=== PATIENT | male | born 1995 | race Caucasian/White ===

== ENCOUNTER 2025-10-01 21:03 | Emergency (ER) | payer BC, SELFPAY ==
--- OUTSIDE RECORDS SUMMARY | 2025-09-13 11:00 | XMS_ITS | Encounter Summary ---
Author Organization Healthcare Address [address] [place] [address] Care Team Providers Care Laboratory Technical Specialist Name Role Phone Yolanda Whitmore MD Primary Care Provider [phone] Isidro Beasley MD Unavailable [phone] Reason for Visit * Reason Comments Depression Encounter Details Date Type Department Care Team (Latest Contact Info) Description 09/13/2025 11:00 AM EDT Office Visit [facility] [address] [place] [address] Yolanda Whitmore MD [address] [place] [address] Overweight (Primary Dx); Hemorrhoids, unspecified hemorrhoid type; Healthcare maintenance; Hyperlipidemia, unspecified hyperlipidemia type Social History Tobacco Use Types Packs/Day Years Used Date Smoking Tobacco: Never Passive Smoke Exposure: Never Smokeless Tobacco: Never Alcohol Use Standard Drinks/Week Comments Yes 6 (1 standard drink = 0.6 oz pure alcohol) I do not abstain from alcohol, but don't drink too often PHQ-2 Answer Date Recorded Patient Health Questionnaire-2 Score 3 06/08/2025 PHQ-9 Answer Date Recorded Patient Health Questionnaire-9 Score 9 06/08/2025 Humiliation, Afraid, Rape, and Kick questionnair e Answer Date Recorded Within the last year, have y ou been afraid of your partner or ex-partner? No 06/01/2025 Within the last year, have y ou been humiliated or emotionally abused in other ways by your partner or ex-partner? No Within the last year, have y ou been kicked, hit, slapped, or otherwise physically hurt by your partner or ex-partner? No 06/01/2025 Within the last year, have y ou been raped or forced to have any kind of sexual activity by your partner or ex-partner? No 06/01/2025 AUDIT-C Answer Date Recorded Q1: How often do you have a drink containing alc ohol? 2-4 times a month 06/08/2025 Q2: How many drinks containi ng alcohol do you have on a typical day when you are drinking? 3 or 4 06/08/2025 Q3: How often do you have si x or more drinks on one occasion? Less than monthly 06/08/2025 Hunger Vital Sign Answer Date Recorded Within the past 12 months, y ou worried that your food would run out before you got the money to buy more. Never true 06/01/20 25 Within the past 12 months, t he food you bought just didn't last and you didn't have money to get more. Never true 06/01/2025 PRAPARE - Transportation Answer Date Re corded In the past 12 months, has l ack of transportation kept you from medical appointments or from getting medications? No 01/2025 In the past 12 months, has l ack of transportation kept you from meetings, work, or from getting things needed for daily living? No 06/01/2025 Housing Stability Vital Sign Answer Cooper e Recorded In the last 12 months, was t here a time when you were not able to pay the mortgage or rent on time? No 06/01/2025 In the past 12 months, how m any times have you moved where you were living? 0 06/01/2025 At any time in the past 12 m [facility], were you homeless or living in a longterm (including now)? No 06/01/2025 Utilities Answer Date Recorded In the past 12 months has th e electric, gas, oil, or water company threatened to shut off services in your home? No 06/01/2025 Sex and Gender Information Value Date Recorded Sex Assigned at Not on file Legal Sex Male 8:13 PM EDT Gender Identity Not on file Sexual Orientation Not on file documented as of this encounter Last Filed Vital Signs Vital Sign Reading Time Taken Comments Blood Pressure 119/78 09/13/2025 10:48 AM EDT Pulse 71 09/13/2025 10:48 AM EDT Temperature 36.7 C (98 F) 09/13/2025 10:48 AM EDT Respiratory Rate 17 09/13/2025 10:48 AM EDT Oxygen Saturation 98% 09/13/2025 10:48 AM EDT Inhaled Oxygen Concentration - - Weight 96.2 kg (212 lb 1.3 oz) 09/13/2025 10:48 AM EDT Height 180.3 cm (5' 11 ) 09/13/2025 10:48 AM EDT Body Mass Index 29.58 09/13/2025 10:48 AM EDT documented in this encounter Functional Status * Calculated C-SSRS Risk Score (Lifetime/Recent) Answer Date of Assessment Author No Risk Indicated 09/13/2025 10:47 AM EDT Elma Sahu * Question Answer Date of Assessment Author 1. Wish to be (Past 1 Month) No 025 10:47 AM EDT Elma Sahu 2. Non-Specific Active Suici agnieszka Thoughts (Past 1 Month) No 09/13/2025 10:47 AM EDT Susanna Sahu 6. Suicidal Behavior (Lifetime) No 10:47 AM EDT Elma Sahu documented as of this encounter Miscellaneous Notes * Patient Instructions - Yolanda Whitmore MD - 09/13/2025 11:00 AM EDT - Call GI at [phone] to schedule appointment. - Call Psychiatry at [phone] option 1 at your earliest convenience to schedule an appointment. - Please obtain a tetanus booster and hepatitis B from your preferred pharmacy and the influenza through your stepmother - We will see you next summer for your annual physical * Progress Notes - Isidro Beasley MD - 09/13/2025 11:00 AM EDT Established Patient Visit Verbal consent was obtained to use ambient listening technology to assist in the documentation of the encounter: yes Subjective HPI Mr. Conrad is here today for a follow up visit for anxiety, GERD, depression, class 1 obesity, and chronic rectal pressure. History of Present Illness He sustained a foot injury while bouldering at a climbing gym, where he slipped and fell, landing on his toes. He heard a popping sound but did not seek immediate medical attention. The following day, he visited an urgent care center, which lacked orthopedic services due to it being a Friday. Cons equently, he was referred to the ER, where he was diagnosed with fractures in the second, third, and fourth tarsals. He was fitted with a boot and advised to follow up in 2 weeks. After this period, he continued to wear the boot for an additional 1.5 weeks before transitioning back to regular footwear. He now wears his usual shoes and experiences occasional tenderness and stiffness, which he attributes to scar tissue. Despite these symptoms, he is able to run and jump. He has not returned to the climbing gym since the incident and plans to avoid it until after the busy season at work. 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 He is concerned about maintaining his activity level, as his current job requires him to be physically active, walking approximately 11,300 steps on Friday and 12,400 steps on Friday. He has not yet consulted with a flavor extractor or psychiatrist. He received a call from the psychiatry department but was unable to respond due to his foot injury. His mental health has improved since being offered a new job, although he still experiences intermittent depression and increased anxiety. He continues to experience rectal pressure, which he believes may be related to gas or an enlarged colon. He maintains a healthy diet, primarily sourcing his food from farmers' markets and fresh markets. He lives alone and prepares most of his meals at home, avoiding processed and fast foods. He reports no abdominal pain or changes in bowel habits. He continues to take MiraLAX and fiber powder for hemorrhoids, typically in the evening. He reports no chest pain, difficulty breathing, or leg swelling. Review of Systems A ROS was performed and negative other than what was stated in the HPI. Current Medications[1] Objective Visit Vitals BP 119/78 (BP Location: Left arm, Patient Position: Sitting, BP Cuff Size: Adult long) Pulse 71 Temp 36.7 ??C (98 ??F) (Oral) Resp 17 Ht 1.803 m (5' 11 ) Wt 96.2 kg (212 lb 1.3 oz) SpO2 98% BMI 29.58 kg/m?? Smoking Status Never BSA 2.19 m?? Physical Exam Vitals reviewed. Constitutional: General: He is not in acute distress. Appearance: Normal appearance. He is not ill-appearing. HENT: Head: Normocephalic and atraumatic. Nose: Nose normal. Cardiovascular: Rate and Rhythm: Normal rate and regular rhythm. Heart sounds: No murmur heard. No friction rub. No gallop. Pulmonary: Effort: Pulmonary effort is normal. No respiratory distress. Breath sounds: Normal breath sounds. No stridor. No wheezing or rhonchi. Chest: Chest wall: No tenderness. Abdominal: General: There is no distension. Palpations: Abdomen is soft. Tenderness: There is no abdominal tenderness. There is no guarding. Musculoskeletal: Right lower leg: No edema. Left lower leg: No edema. Neurological: Mental Status: He is alert and oriented to person, place, and time. Psychiatric: Mood and Affect: Mood normal. Behavior: Behavior normal. Assessment/Plan Mr. Conrad is an 30 y.o. male with anxiety, GERD, depression, class 1 obesity, and chronic rectal pressure who presents today for follow-up with a recent metatarsal neck fracture (recovering well overall). Pascual is overall doing well and has been focusing on diet and lifestyle interventions since our last visit. Minimally displaced 2nd to 4th metatarsal neck fractures - He sustained a foot injury while bouldering at a climbing gym, where he slipped and fell, landingon his toes. He heard a popping sound but did not seek immediate medical attention. The following day, he visited an urgent care center, which lacked orthopedic services due to it being a Friday. Co nsequently, he was referred to the ER, where he was diagnosed with fractures in the second, third, and fourth tarsals. - Following with ortho (07/2025) - Back to ambulation without difficulty or pain Plan: - Continue physical activity as tolerated Depression and anxiety with h/o SI and SA - Has PHQ-9 score of 5. Pascual seemed to have good insight today with protective factors including his family, close friend group, and cat Luz Elena. He has no guns in the home. - Previous visit PHQ-9 was a 9 - He reports that being offered a new job at a [employer] has improved his mental health - He has not been able to schedule an appointment with psychiatry or therapy due to being distracted by his foot injury. Plan: - Provided contacts to schedule psychiatry and for therapy. H/o GERD - He reports increased belching without burning, vomiting, or dysphagia. Plan: - Will monitor with diet modifications. - Low threshold for PPI or H2 course. Hemorrhoids - Continue daily miralax and fiber supplementation Chronic rectal pressure - Pascual noted h/o hemorrhoids and enlarged colon . No records available for review. No alarm features, and we previously deferred exam on account of more pressing medical concerns. - Still present but feels that it maybe related to gas, so deferred evaluation. - He has not been able to schedule an appointment with GI due to being distracted by his foot injury. Plan: - Provided contact to schedule with GI. Request prior C-scope records in the interim. - Would focus on bowel regimen given constipation may be a contributor. HLD - LDL: 139 - He reports focusing on eating local produce with minimal red meat - He reports not eating much processed or fast food - Continue regular aerobic exercise through walking and rock climbing Overweight - Associated HLD with normal A1c and LFTs 05/2025. - Continue regular aerobic exercise through walking and rock climbing Healthcare Maintenance Metabolic BP: At goal. Lipids:RESUFAST(CHOL:3)@ Lab Results Component Value Date HDL 61 06/08/2025 Lab Results Component Value Date LDLCALC 139 (H) 06/08/2025 Lab Results Component Value Date TRIG 48 06/08/2025 f1 Lab Results Component Value Date CRATIO 3 06/08/2025 A1c : Lab Results Component Value Date HGBA1C 5.1 06/08/2025 CMP: Lab Results Component Value Date GLUCOSE 91 06/08/2025 BUN 16 06/08/2025 CREATININE 0.83 06/08/2025 BCR 19 06/08/2025 NA 141 06/08/2025 K 4.6 06/08/2025 CL 107 06/08/2025 CO2 24 06/08/2025 ALBUMIN 4.6 06/08/2025 ALKPHOS 70 06/08/2025 BILITOT 0.3 06/08/2025 Screening (Male): Colon Ca: CRC in non-FDR. Likely repeat at age 45 and can work to get records of prior screening inthe interim. Lung ca: screening is not recommended AAA screening: is not Warranted: (patient between 65-75 years old and has history of smoking) PSA: Discuss at age 50 Lifetime 1x HIV screen: Lab Results Component Value Date HIV Non Reactive 06/08/2025 Lifetime 1x HepC screen: Lab Results Component Value Date HECG Negative 06/08/2025 Immunizations: Influenza: obtained in 2023- will get updated this year from step-mother (school nurse) TDAP: Recommend at local pharmacy Shingrix: Not currently indicated COVID: 2020 HPV: Not discussed Hepatitis B: Recommend at local pharmacy Pneumonia: Not currently indicated RSV: Not currently indicated RTC 05/2026 for annual or PRN Isidro Beasley MD Internal Medicine PGY-1 Diagnosis Plan 1. Overweight 2. Hemorrhoids, unspecified hemorrhoid type 3. Healthcare maintenance 4. Hyperlipidemia, unspecified hyperlipidemia type [1] No current outpatient medications on file. No current facility-administered medications for this visit. Cosigned by Yolanda Whitmore MD at 09/14/2025 3:07 PM EDT Associated attestation - Yolanda Whitmore MD - 09/14/2025 3:07 PM EDT I saw and evaluated the patient. I discussed the case with the resident/fellow and agree with the findings and plan as documented. documented in this encounter Plan of Treatment Upcoming Encounters Date Type Department Care Team (Late st Contact Info) Description 01/09/2026 9:40 AM EST Office Visit [facility] [address] [place] [address] Celia Giordano, SENIOR MEDICAL DIRECTOR [address] [place] [address] 06/08/2026 10:40 AM EDT Office Visit [facility] [address] [place] [address] Yloanda Whitmore MD [address] [facility] [address] [place] [address] documented as of this encounter Visit Diagnoses Diagnosis Overweight- Primary Hemorrhoids, unspecified hemorrhoid type Healthcare maintenance Hyperlipidemia, unspecified hyperlipidemia type documented in this encounter Additional Health Concerns Assessment Noted Time PHQ-9 Depression Total Score: 9 06/08/20 10:16 AM EDT A fall risk assessment has been complete d for the patient 07/01/2025 2:07 PM EDT A Body Mass Index follow-up plan has been documented for the patient 09/14/2025 3:07 PM EDT documented as of this encounter Care Teams Laboratory Technical Specialist Relationship Specialty Start Date End Date Yolanda Whitmore MD [address] [facility] [address] [place] [address] PCP - General Internal Medicine 06/08/25 Isidro Beasley MD [address] [place] [id number] PCP - Resident 06/08/25 05/31/28 documented as of this encounter
[2025-10-01 21:05] VITALS: BP 128/72; PULSE 62; RESP 18; TEMP 36.6; O2SAT 100; BMI 29.2
--- NOTE | 2025-10-01 21:32 | ED_ITS ---
Discharge Plan Disposition Patient Disposition: Home, Self-Care Prescriptions Prescriptions: New levofloxacin 750 mg tablet 750 mg PO DAILY 5 Days Qty: 5 0RF Referrals Follow up/Referrals: Manoj Alonso DO [Staff Physician, Orthopedics] - See instructions Provider,Referral, [Primary Care Provider, Medical] - See instructions Activity Restrictions/Add. Instructions Additional Instructions/Restrictions: At this time it was felt you are safe to be discharged home. If new or worsening symptoms please do not hesitate to return the emergency department. Please call and schedule an appointment with Dr. Alonso's office as soon as you are able for continued evaluation as this may take some time to heal and is at high risk for infection I have prescribed you antibiotics. Do not submerge your hand in water, it is okay to take your splint off and wash it gently if needed. Clinical Impressions Clinical Impression: Laceration of thumb Instructions Patient Instructions: DI for Laceration Repair Print Language Print Language: Kenyan Discharge ED Provider: Martin Landa General Adult HPI <Martin Landa MD - Last Filed: 10/01/25 22:44> General Chief complaint: Wound/Laceration Stated complaint: AO 10-01 left thumb cut Time Seen by Provider: 10/01/25 21:11 Mode of Arrival: Ambulatory Source of Information: Patient and Significant Other Description of Symptoms (Recalled from ER Triage Doc. by RN): patient was cutting chicken with a abimbola when it slipped and cut his left index finger. patient also stated he had 2 shots of bourbon and 1 shot of vodka tonight as well as smoked marajuana. History of Present Illness HPI narrative: Patient is a 30-year-old male right-handed who presents to the emergency department for evaluation of a traumatic injury to his left thumb. Patient inadvertently hit it with a meat Abimbola tetanus not up-to-date. No other traumatic injuries. Please note that above description of symptoms, in this electronic medical record under categorization of recalled from ER triage doctor by RN are reflective of an initial nursing assessment, however, is not reflective of my full history and physical exam that was personally taken and clarified. Consequentially, this preceding description of symptoms, which may include the patient's categorized chief complaint in the EMR, do not reflect my personal clinical impression, and the ultimate description of history of present illness and patient stated complaints should be deferred to this section of the note. Unless stated otherwise or congruent with this section of the note, additional signs, symptoms, or incongruence should be interpreted as inaccurate with my clinical impression. Related Data Previous Rx's ?Medication ?Instructions ?Recorded levofloxacin 750 mg tablet 750 mg PO DAILY Infection 1 12/01/24 prophylaxis 5 days #5 tabs Allergies Allergy/AdvReac Type Severity Reaction Status Date / Time No Known Allergies Allergy Verified 10/01/25 21:25 PFS <Martin Landa MD - Last Filed: 10/01/25 22:44> [facility] Disclaimer: The information contained in this section may have been updated after the patient was seen, as this information can be updated by other users. Social History (Updated 10/01/25 @ 22:35 by SANCHEZ Bolanos) Smoking Status: Never smoker alcohol intake: never current occupational status: other Travel in the last 8 weeks?: None Have you lived/traveled outside US in past 30 days?: No Contact w/someone who lives/traveled outside US past 30 days?: No Exposure to someone with infectious disease in past 14 days?: No Do you have a fever (greater than 100.4 F or 38 C)?: No Have you tested positive for COVID-19?: No Exposed to someone with COVID-19 in past 14 days?: No Do you have a sore throat?: No Do you have a cough?: No Do you have any weakness?: No Do you have any diarrhea?: No Are you experiencing any unusual bleeding?: No Do you have any muscle aches/pain?: No Do you have any abdominal pain?: No Are you experiencing loss of taste or smell?: No <Martin Landa MD - Last Filed: 10/01/25 22:44> ROS Obtained: Yes Systems reviewed as appropriate & no additional complaints except as documented Physical Exam <Martin Landa MD - Last Filed: 10/01/25 22:44> General General appearance: alert and in no apparent distress Head Head exam: atraumatic and normocephalic Eye Eye exam: Present PERRL and EOMI ENT ENT exam: Present mucous membranes moist Neck Neck exam: Present normal inspection Chest Chest inspection: Present normal inspection and symmetric chest wall rise Respiratory Respiratory exam: Absent respiratory distress Cardiovascular Cardiovascular exam: Present regular rate and normal rhythm Abdominal Exam Abdominal exam: Present soft Extremities Exam Extremities exam: Present other (2 cm curvilinear laceration of the left thumb extending from the distal ulnar-sided nailbed around into the pulp of the thumb oozing blood.) Neurological Exam Neurological exam: Present alert Psychiatric Psychiatric exam: Present normal affect Skin Skin exam: Present warm and dry Medical Decision Making <Martin Landa MD - Last Filed: 10/01/25 22:44> Medical Records Screening: Per USPSTF and CDC recommendations, given the prevalence of disease in our region, it is our hospital?s policy to screen for HIV and viral Hepatitis for all patients aged 18 and over and those with ongoing risk factors. Miguel Inquiry Pt receiving controlled substance: No Vital Signs: 10/01/25 21:05 Temperature 97.8 F Temperature Source Oral Pulse Rate [Left Radial] 62 Respiratory Rate 18 Blood Pressure [Right Arm] 128/72 Blood Pressure Mean [Right Arm] 90 Blood Pressure Source [Right Arm] Automatic Cuff Blood Pressure Position [Right Arm] Sitting 02 Sat by Pulse Oximetry 100 Oxygen Delivery Method Room Air Orders (Tests/Meds): ED MEDICATIONS Discontinued Medications Generic Name Dose Route Start Last Admin Trade Name Freq PRN Reason Stop Dose Admin Levofloxacin 750 mg 10/01/25 22:13 10/01/25 22:27 Levofloxacin 750 Mg Tablet PO 10/01/25 22:14 750 mg ONCE ONE Administration Lidocaine HCl 10 ml 10/01/25 21:39 10/01/25 21:49 Lidocaine 1% 10ml Mdv IJ 10/01/25 21:40 10 ml ONCE ONE Administration Tetanus/Reduced Diphtheria/Acell Pertussis 0.5 ml 10/01/25 21:39 10/01/25 21:50 Tet/Diphth/Pert-Adult 0.5ml Syringe IM 10/01/25 21:40 0.5 ml .ONCE ONE Administration ORDERS Category Date Time Status Hand XR left minimum 3 views [XR hand LT min 3V] Stat Exams 10/01/25 21:34 Completed Medical Decision Narrative: In summary patient is a 30-year-old male past medical history described above presents emergency department for evaluation of traumatic injury to his nondominant thumb. Patient is hemodynamically stable nontoxic-appearing arrival, afebrile. Plain film will be obtained. Tetanus will be updated. Wound underwent primary repair with success and patient is appropriate for outpatient management at this time. Levofloxacin was initiated in the emergency department for Salmonella prophylaxis given chicken exposure. X-ray informally interpreted by me no acute displaced fracture. Patient will follow-up with orthopedics on an outpatient basis. <SANCHEZ Bolanos - Last Filed: 10/01/25 22:35> Vital Signs: 10/01/25 21:05 Temperature 97.8 F Temperature Source Oral Pulse Rate [Left Radial] 62 Respiratory Rate 18 Blood Pressure [Right Arm] 128/72 Blood Pressure Mean [Right Arm] 90 Blood Pressure Source [Right Arm] Automatic Cuff Blood Pressure Position [Right Arm] Sitting 02 Sat by Pulse Oximetry 100 Oxygen Delivery Method Room Air Orders (Tests/Meds): ED MEDICATIONS Discontinued Medications Generic Name Dose Route Start Last Admin Trade Name Jannet PRN Reason Stop Dose Admin Levofloxacin 750 mg 10/01/25 22:13 10/01/25 22:27 Levofloxacin 750 Mg Tablet PO 10/01/25 22:14 750 mg ONCE ONE Administration Lidocaine HCl 10 ml 10/01/25 21:39 10/01/25 21:49 Lidocaine 1% 10ml Mdv IJ 10/01/25 21:40 10 ml ONCE ONE Administration Tetanus/Reduced Diphtheria/Acell Pertussis 0.5 ml 10/01/25 21:39 10/01/25 21:50 Tet/Diphth/Pert-Adult 0.5ml Syringe IM 10/01/25 21:40 0.5 ml .ONCE ONE Administration ORDERS Category Date Time Status Hand XR left minimum 3 views [XR hand LT min 3V] Stat Exams 10/01/25 21:34 Completed Procedures <SANCHEZ Bolanos - Last Filed: 10/01/25 22:35> Laceration Laceration 1: Site: thumb Side (If applicable): left Size (cm): 2 Description: flap and irregular Depth: simple, single layer Local Anesthetic: lidocaine 1% Amount of anesthesia used (mL): 5 Pre-repair: wound explored, irrigated extensively and deep structures intact Skin layer closed with: nylon and Dermabond Size (cm): 5-0 Number of sutures: 3 Technique: simple, interrupted Nerve Block Nerve Block 1: Time out performed: No Local Anesthetic: lidocaine 1% Amount of anesthesia used (mL): 5 Side: Left Nerve Blocks: digital Procedure Successful: Yes Patient Tolerated Procedure: well and no complications Complications: none Critical Care <SANCHEZ Bolanos - Last Filed: 10/01/25 22:35> Critical Care Time Critical Care Time: No
--- NOTE | 2025-10-01 21:34 | XR_ITS ---
PROCEDURE INFORMATION: Exam: XR Left Hand Exam date and time: 10/01/2025 9:37 PM Age: 30 years old Clinical indication: Injury or trauma; Other: Laceration; Finger; Left; Thumb; Additional info: L thumb injury TECHNIQUE: Imaging protocol: Radiologic exam of the left hand. Views: 3 or more views. COMPARISON: No relevant prior studies available. FINDINGS: Bones/joints: No acute fracture or dislocation. Soft tissues: Possible soft tissue injury of the distal thumb. IMPRESSION: No acute fracture or dislocation.
--- OUTSIDE RECORDS SUMMARY | 2025-10-01 21:41 | XMS_ITS | Encounter Summary ---
Author Organization Healthcare Address [address] [place] [address] Care Team Providers Care Welding Equipment Sales Representative Name Role Phone Yolanda Whitmore MD Primary Care Provider [phone] Isidro Beasley MD Unavailable [phone] Encounter Details Date Type Department Care Team (Latest Contact Info) Description 09/13/2025 Travel Social History Tobacco Use Types Packs/Day Years [...] were you homeless or living in a jail (including now)? No 06/01/2025 Utilities Answer Date [...] on file documented as of this encounter Functional Status * Calculated C-SSRS [...] Elma Sahu documented as of this encounter Plan of Treatment Upcoming Encounters Date Type Department Care Team (Late st Contact Info) Description 01/09/2026 9:40 AM EST [facility] [address], [address] [place] [address] Celia Giordano, SOLUTIONS EXECUTIVE CLOUD SALES [address] [place] [address] 06/08/2026 10:40 AM EDT Office Visit [facility] Internal Medicine [address]rd [place] [address] Yolanda Whitmore MD [address] [facility] [address] [place] [address] documented as of this encounter Visit Diagnoses Not on filedocumented in this encounter Additional Health Concerns Assessment Noted Time PHQ-9 Depression Total Score: 9 06/08/20 25 10:16 AM EDT A fall risk assessment has been complete d for the patient 07/01/2025 2:07 PM EDT A Body Mass Index follow-up plan has been documented for the patient 09/14/2025 3:07 PM EDT documented as of this encounter Care Teams Welding Equipment Sales Representative Relationship Specialty Start Date End Date Yolanda Whitmore MD [address] [facility] [address] [place] [address] PCP - General Internal Medicine 06/08/25 Isidro Beasley MD [address] [place] [address] PCP - Resident 06/08/25 05/31/28 documented as of this encounter
--- OUTSIDE RECORDS SUMMARY | 2025-10-01 21:41 | XMS_ITS | Encounter Summary ---
Author Organization Healthcare Address [address] [place] [address] Care Team Providers Care Marketing Operations Analyst Name Role Phone Yolanda Whitmore MD Primary Care Provider [phone] Isidro Beasley MD Unavailable [phone] Reason for Visit * Reason Onset Date Comments HCN - Patient Message 07/27/2025 Encounter Details Date Type Department Care Team (Late st Contact Info) Description 07/27/2025 Telephone [facility] [address] [place] [address] HCN - Patient Message Social History Tobacco Use Types Packs/Day Years Used Date Smoking Tobacco: Never Smokeless Tobacco: Never Alcohol Use Standard [...] any time in the past 12 m [facility], were you homeless or living in a detention (including now)? No 06/01/2025 Utilities Answer Date Recorded In the past 12 months has th e [employer], gas, oil, or water [employer] threatened to shut off services in your home? 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 Was sent to clinic for review Best contact number: [phone] (mobile) Optimal time of day to reach caller: ANYTIME Additional comments/information from caller: Note: Please do not reply to this message. Follow-up communication and further actions as a result of this message need to be communicated with the patient directly, if the patient is not active onMyChart. If the patient is active on MyChart, they will receive notification of the communication/outcome via MyChart. documented in this encounter Plan of Treatment Upcoming Encounters Date Type Department Care Team (Late st Contact Info) Description 01/09/2026 9:40 AM EST Office Visit [facility] [address] [place] [address] Celia Giordano, CATALYST RECOVERY OPERATOR [address] [place] [address] 06/08/2026 10:40 AM EDT Office Visit [facility] Internal Medicine [address] [place] [address] Yolanda Whitmore MD [address] [place] [address] documented as of this encounter Visit Diagnoses Not on filedocumented in this encounter Additional Health Concerns Assessment Noted Time PHQ-9 Depression Total Score: 9 06/08/20 10:16 AM EDT A fall risk assessment has been complete d for the patient 07/01/2025 2:07 PM EDT A Body Mass Index follow-up plan has been documented for the patient 07/01/2025 3:25 PM EDT documented as of this encounter Care Teams Marketing Operations Analyst Relationship Specialty Start Date End Date Yolanda Whitmore MD [address] [place] [address] PCP - General Internal Medicine 06/08/25 Isidro Beasley MD [address] [place] [address] PCP - Resident 06/08/25 05/31/28 documented as of this encounter
--- OUTSIDE RECORDS SUMMARY | 2025-10-01 21:41 | XMS_ITS | Encounter Summary ---
Author Organization Healthcare Address [address] [place] [address] Care Team Providers Care Instructional Support Services Director Name Role Phone Yolanda Whitmore MD Primary Care Provider [phone] Isidro Beasley MD Unavailable [phone] Encounter Details Date Type Department Care Team (Late st Contact Info) Description 06/08/2025 Results Follow-Up [facility] Medicine Specialties [address], [address] [place] [address] Isidro Beasley MD [address] [id number] Social History Tobacco Use Types Packs/Day Years [...] any time in the past 12 m [facility], were you homeless or living in a [facility] (including now)? No 06/01/2025 Utilities Answer Date Recorded In the past 12 months has th e [employer], gas, oil, or water [employer] threatened to shut off services in your home? No 06/01/2025 Sex and Gender Information Value Date Recorded Sex Assigned at Not on file Legal Sex Male 8:13 PM EDT Gender Identity Not on file Sexual Orientation Not on file documented as of this encounter Functional Status * AUDIT-C Score Answer Date of Assessment Author 4 06/08/2025 10:52 AM EDT Isidro Beasley MD * Question Answer Date of Assessment Author Q1: How often do you have a drink containing alcohol? 2-4 times a month 06/08/2025 10:52 AM Isidro Garcia MD Q2: How many drinks containing alcohol do you have on a typical day when you are drinking? 3 or 4 06/08/2025 10:52 AM Isidro Garcia MD Q3: How often do you have six or more drinks on one occasion? Less than monthly 06/08/2025 10:52 AM Isidro Garcia MD * Over the past 2 weeks, how often have you been bothered by any of the following problems? Question Answer Date of Assessment Author Little interest or pleasure in doing things More than half the days 06/08/2025 10:16 AM Jaspreet Lima Feeling down, depressed, or hopeless Several days 06/08/2025 10:16 AM Ashia Lima Patient Health Questionnaire-2 Score 3 06/08/2025 10:16 AM Jaspreet Lima * Question Answer Date of Assessment Author Trouble falling or staying asleep, or sleeping too much Not at all 06/08/2025 10:16 AM Jaspreet Lima Feeling tired or having little energy Several days 06/08/2025 10:16 AM Jaspreet Lima Poor appetite or overeating Not at all 06/08/2025 10 :16 AM Jaspreet Lima Feeling bad about yourself - or that you are a failure or have let yourself or your family down Nearly every day 06/08/2025 10:16 AM Jaspreet Lima Trouble concentrating on things, such as reading the newspaper or watching television Several days 06/08/2025 10:16 AM Jaspreet Lima Moving or speaking so slowly that other people could have noticed? Or the opposite - being so fidgety or restless that you have been moving around a lot more than usual. Not at all 06/08/2025 10:16 AM Jaspreet Lima Thoughts that you would be better off or hurting yourself in some way Several days 06/08/2025 10:16 AM Jaspreet Lima Patient Health Questionnaire-9 Score 9 06/08/2025 10:16 AM Jaspreet Lima * Calculated C-SSRS Risk Score (Lifetime/Recent) Answer Date of Assessment Author No Risk Indicated 06/18/2025 1:34 PM EDT Lashanda Moran RN * How difficult have these problems made it for you to do your work, take care of things at home, or get along with other people? Answer Date of Assessment Author Somewhat difficult 06/08/2025 10:16 AM Jaspreet Camargo * How difficult have these problems made it for you to do your work, take care of things at home, or get along with other people? Answer Date of Assessment Author Somewhat difficult 06/08/2025 10:16 AM Jaspreet Camargo * Question Answer Date of Assessment Author 1. Wish to be (Past 1 Month) No 025 1:34 PM Lashanda Oliveira RN 2. Non-Specific Active Suici agnieszka Thoughts (Past 1 Month) No 06/18/2025 1:34 PM Lashanda Oliveira RN 6. Suicidal Behavior (Lifetime) No 1:34 PM Lashanda Oliveira RN * Question Answer Date of Assessment Author 3. Active Suicidal Ideation with any Methods (Not Plan) Without Intent to Act (Past 1 Month) Yes 06/08/2025 10:16 AM Jaspreet Lima 4. Active Suicidal Ideation with Some Intent to Act, Without Specific Plan (Past 1 Month) No 06/08/2025 10:16 AM Jaspreet Lima 5. Active Suicidal Ideation with Specific Plan and Intent (Past 1 Month) No 06/08/2025 10:16 AM Jaspreet Lima documented as of this encounter Plan of Treatment Upcoming Encounters Date Type Department Care Team (Late st Contact Info) Description 01/09/2026 9:40 AM EST Office Visit [facility] [address] [place] [address] Celia Giordano, BECKIE [address] [place] [address] 06/08/2026 10:40 AM EDT Office Visit [facility] Internal Medicine [address], [address] [place] [address] Yolanda Whitmore MD [address] [address] documented as of this encounter Visit Diagnoses Not on filedocumented in this encounter Additional Health Concerns Assessment Noted Time PHQ-9 Depression Total Score: 9 06/08/20 10:16 AM EDT A Body Mass Index follow-up plan has been documented for the patient 06/10/2025 1:47 PM EDT documented as of this encounter Care Teams Instructional Support Services Director Relationship Specialty Start Date End Date Yolanda Whitmore MD [address] [address] PCP - General Internal Medicine 06/08/25 Isidro Beasley MD [address] [place] [address] PCP - Resident 06/08/25 05/31/28 documented as of this encounter
--- OUTSIDE RECORDS SUMMARY | 2025-10-01 21:41 | XMS_ITS | Clinical Summary ---
Author Organization Healthcare Address [address] [place] [address] Care Team Providers Care Fabrication And Assembly Supervisor Name Role Phone Yolanda Whitmore MD Primary Care Provider [phone] Isidro Beasley MD Unavailable [phone] Allergies No known active allergies Medications * This document contains information received from the source organization and may not represent a complete record from that organization. No known medications Active Problems Problem Noted Date Diagnosed Date Hemorrhoids 09/14/2025 Encounters * This document contains information received from the source organization and may not represent a complete record from that organization. Date Type Department Care Team Description 09/13/2025 11:00 AM EDT Office Visit [facility] Internal Medicine [address] [place] [phone] Yolanda Whitmore MD Overweight (Primary Dx); Hemorrhoids, unspecified hemorrhoid type; Healthcare maintenance; Hyperlipidemia, unspecified hyperlipidemia type 09/13/2025 Travel 07/27/2025 Telephone [facility] Medicine Specialties [address] [place] [address] HCN - Patient Message 07/05/2025 Abstract [facility] Orthopaedic Surgery & Sports Medicine [address] [place] [address] [place] [address] Chau Hutchison MD 07/01/2025 2:40 PM EDT Office Visit [facility] Orthopaedic Surgery & Sports Medicine [address] [place] [address] Chau Hutchison MD Right foot pain (Primary Dx) 07/01/2025 2:12 PM EDT - 07/01/2025 11:59 PM EDT [facility] En[facility] [address] [place] [address] Right foot pain Discharge Disposition: Home or Self Care 07/01/2025 Travel from Last 3 Months Family History Medical History Relation Name Comments Depression Brothgeorgie Conrad Drug abuse Brother Jean Conrad Vision loss Brother Jean Conrad Cancer of head and neck Father Vision loss Father Depression Maternal Grandmother Macy Samaniego Breast cancer Mother Colon cancer Paternal Great-Grandfather Prostate cancer Neg Hx Relation Name Status Comments Brother Jean Conrad Father Alive Maternal Grandmother Macy Samaniego Mother Paternal Great-Grandfather Social History Tobacco Use Types Packs/Day Years [...] any time in the past 12 m [facility], were you homeless or living in a retirement (including now)? No 06/01/2025 Utilities Answer Date Recorded In the past 12 months has th e electric, gas, oil, or water company threatened to shut off services in your home? No 06/01/2025 Sex and Gender Information Value Date Recorded Sex Assigned at Not on file Legal Sex Male 8:13 PM EDT Gender Identity Not on file Sexual Orientation Not on file Last Filed Vital Signs Vital Sign Reading [...] Mass Index 29.58 09/13/2025 10:48 AM EDT Plan of Treatment Upcoming Encounters Date Type Department Care Team (Late st Contact Info) Description 01/09/2026 9:40 AM EST [facility] [address] [place] [address] Celia Giordano, LEGAL SPECIALIST [address] [place] [address] 06/08/2026 10:40 AM EDT Office Visit [facility] Internal Medicine [address] [place] [address] Yolanda Whitmore MD [address] [place] [address] Health Maintenance Due Date Last Done Comments [facility]-Infant/Child/Adol SDOH Screenings 1995 [facility]-Varicella Vaccines (1 of 2 - 13+ 2-dose series) 2008 [facility]-DTaP,Tdap,and Td Vaccines (1 - Tdap) 2014 [facility]-Hepatitis B Vaccines (1 of 3 - 19+ 3-dose series) 2014 HPV Vaccines (1 - 3-dose SCDM series) 2022 [facility]-[id number] Vaccine (1 - 2023- season) 2025 [facility]-Influenza Vaccine (#1) 2025 [facility]- SDOH Screenings 12/02/2025 [facility]-Adult SDOH Screenings 12/02/2025 06/01/2025 [facility]-Depression Screening 06/08/2026 06/08/2025, 07/0 08/2025 [facility]-Zoster Vaccines (1 of 2) 2045 [facility]-HIV Screening Completed 06/08/2025 [facility]-Hepatitis C Screening Completed 06/08/2025 [facility]-Obesity Intervention Completed 025, 07/01/2025, 06/18/2025, Additional history exists [facility]-HIB Vaccines Aged Out No longer e ligible based on patient's age to complete this topic [facility]-Hepatitis A Vaccines Aged Out No longer eligible based on patient's age to complete this topic [facility]-IPV Vaccines Aged Out No longer e ligible based on patient's age to complete this topic [facility]-Pneumococcal Vaccine: Pediatrics (0 to 5 Years) and At-Risk Patients (6 to 49 Years) Aged Out No longer eligible based on patient's age to complete this topic [facility]-Rotavirus Vaccines Aged Out No lo nger eligible based on patient's age to complete this topic Procedures Procedure Name Priority Date/Time Associated Diagnosis Comments XR FOOT RIGHT 3+ VIEWS Routine 2:23 PM EDT Right foot pain HEPATITIS C ANTIBODY W/REFLEX TO HCV QUANT PCR Routine 06/08/2025 12:05 PM EDT Encounter for hepatitis C screening test for low risk patient HIV 1/2 ANTIBODY/ANTIGEN SCREEN WITH REFLEX TO HIV I/II DIFFERENTIATION Routine 06/08/2025 12:05 PM EDT Screening for HIV (human immunodeficiency virus) from Last 3 Months or Most Recently Relevant to Health Maintenance Results * XR Foot Right 3+ Views (07/01/2025 2:23 PM EDT) Anatomical Region Laterality Modality Lower Extremities, Foot Right Digital Radiography Impressions 07/01/2025 3:15 PM EDT Redemonstration of fracture of the second, third, and fourth metatarsals in similar alignment prior. CRITICAL RESULT: No. COMMUNICATION: Per this written report. Drafted by Zeyad Tao on 07/01/2025 3:13 PM Final report signed by Zeyad Tao on 07/01/2025 3:15 PM Narrative 07/01/2025 3:15 PM EDT CLINICAL INDICATION: pain TECHNIQUE: XR FOOT RIGHT 3+ VIEWS COMPARISON: June 18, 2025 FINDINGS: Redemonstration of mildly displaced fractures of the neck of the third and fourth metatarsals in similar alignment to prior with slight lateral displacement. Minimally displaced fracture of the second metatarsal is grossly unchanged. No newly visualized fractures. Subtle calcaneal enthesopathy. Mild soft tissue swelling overlying the fractures. Procedure Note Zeyad Tao MD - 07/01/2025 CLINICAL INDICATION: pain TECHNIQUE: XR FOOT RIGHT 3+ VIEWS COMPARISON: June 18, 2025 FINDINGS: Redemonstration of mildly displaced fractures of the neck of the third andfourth metatarsals in similar alignment to prior with slight lateraldisplacement. Minimally displaced fracture of the second metatarsal isgrossly unchanged. No newly visualized fractures. Subtle calcanealenthesopathy. Mild soft tissue swelling overlying the fractures. IMPRESSION: Redemonstration of fracture of the second, third, and fourth metatarsalsin similar alignment prior. CRITICAL RESULT: No. COMMUNICATION: Per this written report. Drafted by Zeyad Tao on 07/01/2025 3:13 PM Final report signed by Zeyad Tao on 07/01/2025 3:15 PM us Chau Hutchison MD IMG XR PROCEDURES Final Resu lt * HIV 1 & 2 Antibody/Antigen Screen (06/08/2025 12:05 PM EDT) HIV 1 & 2 Antibody/Antigen Screen Non Reactive Non Reactive 06/08/2025 2:54 PM EDT [facility] Comment:Screening for HIV 1 & 2 antibodies, and P24 antigen is NONREACTIVE. No confirmatory testing is required. Blood Venous blood specimen / Unknown Venipuncture / Unknown 06/08/2025 12:05 PM EDT 06/08/2025 12:05 PM EDT us Yolanda Whitmore MD LAB BLOOD ORDERABLES Final Re sult [facility] [address] [place] [address] * Hepatitis C Antibody w/Reflex to HCV Quant PCR (06/08/2025 12:05 PM EDT) Hepatitis C Antibody Negative Negative 06/08/2025 2:45 PM EDT [facility] Blood Venous blood specimen / Unknown Venipuncture / Unknown 06/08/2025 12:05 PM EDT 06/08/2025 12:05 PM EDT us Yolanda Whitmore MD LAB BLOOD ORDERABLES Final Re sult [facility] [address] [place] [address] from Last 3 Months or Most Recently Relevant to Health Maintenance Insurance [employer] Care Teams Fabrication And Assembly Supervisor Relationship Specialty Start Date End Date Yolanda Whitmore MD [address] [phone] PCP - General Internal Medicine 06/08/25 Isidro Beasley MD [address] [place] [address] PCP - Resident 06/08/25 05/31/28
[2025-10-01] MEDS: LIDOCAINE 1% 10ML MDV 10 ML IJ (21:49)
[2025-10-01] MEDS: TET/DIPHTH/PERT-ADULT 0.5ML SYRINGE 0.5 ML IM (21:50)
[2025-10-01 23:11] VITALS: BP 125/78; PULSE 87; RESP 20; TEMP 37.1; O2SAT 99
== END 2025-10-01 23:23 | disposition home or self-care (01) ==
PROVIDERS: Emergency Provider Emergency Medicine
DX: S61.012A Laceration without foreign body of left thumb without damage to nail, initial encounter (principal); W26.0XXA Contact with knife, initial encounter
CPT/HCPCS: 12001; 73130; 90471; 90715; 99283